=== PATIENT | male | born 1965 | race Caucasian/White ===

== ENCOUNTER → 2017-10-02 | Day surgery (SDC) | payer OTHER ==
[2017-09-16 08:03] VITALS: Ht 177.8 cm; Wt 97.7 kg
[~2017-10-02] VITALS: Ht 177.8 cm; Wt 97.7 kg
[~2017-10-02] MED LIST: ATROPINE SULFATE 0.1 MG/ML 5ML SYR IV PRN; BUPIVACAINE 0.25% 30 ML VIAL ONE; CEFAZOLIN 2000MG IV PUSH 15 ML IV SCH; DEXAMETHASONE SOD INJ 4 MG/ML VIAL ONE; EpINEphrine INJ 1MG/ML AMP 1 MG/ML AMP ONE; FENTANYL CITRATE INJ 50 MCG/1 ML 2 ML VIAL IV PRN; FENTANYL CITRATE INJ 50 MCG/1 ML 2 ML VIAL ONE; GLYCOPYRROLATE INJ 0.2 MG/ML VIAL ONE; KETO10TA PO; KETOROLAC TROMETHAMINE 30 MG/ML VIAL IV. PRN; LABETALOL HCL IV 5 MG/ML 20ML IV PRN; LACTATED RINGER'S 1000ML 1,000 ML IV SCH; LIDOCAINE HCL 2% 2 ML VIAL (20MG/ML) ONE; MIDAZOLAM HCL 1 MG/ML 2ML VIAL ONE; NEOSTIGMINE METHYLSULFATE 5 MG/5 ML SYR ONE; ONDANSETRON INJ 2 MG/ML 2 ML VIAL IV PRN; ONDANSETRON INJ 2 MG/ML 2 ML VIAL ONE; OXYC-57 PO; OXYCODONE/ACETAMINOPHEN 5-325 TAB PO PRN; PROPOFOL IV EMULSION 10 MG/ML 20 ML VIAL IV ONE; ROCURONIUM BROMIDE 10 MG/ML 5 ML VIAL IV ONE; ROPIVACAINE 0.5% 5 MG/ML 30 ML VIAL ONE; SODIUM CHLORIDE 0.9% 1000ML 1,000 ML IV SCH
--- NOTE | 2017-10-02 10:01 | History & Physical Bridge - [place] ---
H&P Re-Evaluation Bridge Note: I have examined the patient, reviewed the History & Physical and in the interval since the performance of the History & Physical I have noted the following changes of clinical significance: No changes noted
--- NOTE | 2017-10-02 12:55 | [facility] Post Operative Brief Note ---
Immediate Operative Summary Operative Date Oct 02, 2017. Pre-Operative Diagnosis Left Shoulder Rotator Cuff Tear Post-Operative Diagnosis Same Procedure(s) Performed Left Shoulder Arthroscopy, Large Rotator Cuff Repair, Extensive Debridement, Biceps Tenodesis Surgeon Dr. Ireland Freight Adjuster Surgeon(s) LORENA Dove Estimated Blood Loss 5 mL Findings Consistent with Post-Op Diagnosis Specimens None Drains None Anesthesia Type General Regional Disposition Disposition: Recovery Room / PACU
--- NOTE | 2017-10-02 13:19 | Discharge Instructions-SurgCtr ---
Discharge Instructions Date of Service Oct 02, 2017. Visit Reason for Visit: Left Shoulder Full Thickness Rotator Cuff Tear Discharge Discharge Diagnosis / Problem: SAME ABOVE Discharge Goals Goal(s): Decrease discomfort, Improve function Activity Recommendations Activity Limitations: as noted below Lifting Limitations: until after follow-up appointment Exercise/Sports Limitations: until after follow-up appointment Shower/Bathe: tomorrow Anesthesia . Post Anesthesia Instructions: If you have had General Anesthesia or IV Sedation: * Do not drive today. * Resume driving when surgeon permits. * Do not make important decisions or sign legal documents today. * Call surgeon for: 1. Temperature elevations greater than 101 degrees F. 2. Uncontrollable pain. 3. Excessive bleeding. 4. Persistent nausea and vomiting. 5. Medication intolerance (nausea, vomiting or rash). * For nausea and vomiting use only clear liquids such as: tea, soda, bouillon until nausea subsides, then gradually increase diet as tolerated. * If you have any concerns or questions, call your surgeon's office. If physician is unavailable and it is an emergency, call 911 or go to the nearest emergency room. . Instructions / Follow-Up Instructions / Follow-Up MEDICATIONS: * Resume previous medications unless instructed otherwise by your surgeon. * Always take pain medication on a full stomach or with food to avoid upset stomach. * Do not drink alcohol or drive while taking narcotics. * Ibuprofen or Tylenol may be taken if narcotic not needed. SPECIAL CARE INSTRUCTIONS: __ None _X_ Keep extremity elevated and iced x 48 hours; apply ice 20-30 minutes 8-10 times/day. May remove at night. __ Sling __24 hrs/day __ Remove at night _X_ Shoulder Immobilizer (MAY REMOVE AFTER 48 HOURS ONLY TO SHOWER) _X_ 24 hrs/day __ Remove at night _X_ Dressing __ Maintain until seen in office, may shower with plastic over site _X_ Remove dressings in 24-48 hours and then may shower _X_ Cover incisions with band-aids after showering __ Do not remove steri-strips Call physician if chills or temperature rises above 102 degrees or pain unrelieved by prescribed pain medications at . . Diet Recommendations Home Diet: no limitations Fluid Restriction: None Procedures Procedures Performed: Left Shoulder Arthroscopy, Large Rotator Cuff Repair, Extensive Debridement, Biceps Tenodesis Pending Studies Studies pending at discharge: no Work Instructions Return To Work: after follow-up Lifting Limitations: NO LIFTING WITH LEFT ARM Medical Emergencies . Who to Call and When: Medical Emergencies: If at any time you feel your situation is an emergency, please call 911 immediately. . Non-Emergent Contact Non-Emergency issues call your: Primary Care Provider Call Non-Emergent contact if: you have a fever, temperature is above 101.5 . . "Provider Documentation" section prepared by Facundo Zamudio. .
[2017-10-02 15:00] VITALS: BP 149/89; PULSE 43; TEMP 36.7; O2SAT 96
--- NOTE | 2017-10-02 15:00 | Anesthesia Progress Nt - [facility] ---
Anesthesia Post Op Note Date & Time Oct 02, 2017 at 14:59 Vital Signs Pain Intensity: 0 Vital Signs Past 12 Hours Date Time Temp Pulse Resp B/P (MAP) Pulse Ox O2 Delivery O2 Flow Rate FiO2 10/02/17 14:04 36.5 48 14 141/89 (106) 97 Room Air 10/02/17 13:55 36.1 50 16 120/88 97 Room Air 10/02/17 13:51 135/82 10/02/17 13:49 51 17 10/02/17 13:49 51 17 97 10/02/17 13:47 127/70 10/02/17 13:44 47 3 10/02/17 13:44 47 3 100 10/02/17 13:41 116/77 10/02/17 13:39 49 10 100 10/02/17 13:39 49 10 10/02/17 13:38 48 10 100 10/02/17 13:38 49 10 10/02/17 13:36 120/85 10/02/17 13:33 55 18 100 10/02/17 13:33 49 18 10/02/17 13:31 125/85 10/02/17 13:28 53 24 100 10/02/17 13:28 52 24 10/02/17 13:26 115/90 10/02/17 13:23 55 20 10/02/17 13:23 56 20 100 10/02/17 13:21 121/77 10/02/17 13:19 36.1 58 16 116/77 99 Mask 6 10/02/17 13:18 123/88 10/02/17 11:11 129/85 10/02/17 11:07 58 20 98 10/02/17 11:07 58 10/02/17 11:06 61 19 127/85 98 10/02/17 11:06 60 10/02/17 11:03 161/70 10/02/17 09:08 36.5 53 16 122/89 (100) 97 Room Air Notes Mental Status: alert / awake / arousable, participated in evaluation Pt Amnestic to Procedure: Yes Nausea / Vomiting: adequately controlled Pain: adequately controlled Airway Patency, RR, SpO2: stable & adequate BP & HR: stable & adequate Hydration State: stable & adequate Anesthetic Complications: no major complications apparent
--- NOTE | 2017-10-02 17:28 | OPERATIVE REPORT ---
DATE OF OPERATION: 10/02/2017 PREOPERATIVE DIAGNOSIS: Large left rotator cuff tear. POSTOPERATIVE DIAGNOSIS: Same. PROCEDURE: Left shoulder diagnostic arthroscopy with extensive debridement, large chronic retracted rotator cuff repair and arthroscopic biceps tenodesis. SURGEON: Dr. Sixto Ireland. RIVET FLUNKY: Samuel Zamudio PA-C, whose assistance was necessary for positioning the arm and helping with instrumentation. ANESTHESIA: General with left interscalene nerve block. COMPLICATIONS: None. CONDITION: Stable to PACU. 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 He has been having several years of shoulder pain, but then fell hard about 3 months ago. He was having difficulty lifting his arm. MRI and clinical examination showed a large retracted rotator cuff tear. After failing conservative treatment, he elected to undergo repair. DESCRIPTION OF PROCEDURE: On 10/02/2017, he arrived at [facility] for the above procedure. He was seen in the preoperative holding area and the operative extremity was identified and signed. He was given a preoperative antibiotic and a left interscalene nerve block. He was taken back to the operating room, laid on the table in supine position and put under general anesthesia. He was then put into the beachchair position. The left shoulder was prepped and draped in sterile fashion. Time-out was done and the patient's operative extremity was properly identified. A scope was introduced into the posterior portal. Diagnostic arthroscopy showed no cartilage damage to the humeral head or the glenoid. The biceps tendon was very frayed. Subscapularis was intact. There was a tear of the entire supraspinatus and infraspinatus. It was retracted towards the level of the glenoid. An anterior portal was made. A shaver was used to do a limited debridement of the intraarticular structures. The biceps tendon was arthroscopically tenotomized for later tenodesis. A scope was then put into the subacromial space. Three lateral portals were made and Griselda cannulas were placed in each of 3 lateral portals. Significant time was spent doing extensive debridement around the rotator cuff to help free it up. I was able to get good coverage over 50% of the footprint. The rotator cuff tissue felt fairly robust. It was obviously a chronic tear, but it was amendable to repair. The greater tuberosity was then prepared with a ring curette and a microfracture. The rotator cuff was then fixed with an Arthrex suspension bridge configuration using BioComposite SwiveLock suture anchors and FiberTapes. I was able to get a nice repair. The long head of the biceps tendon was tagged with a FiberLink and incorporated into a SwiveLock to complete an arthroscopic biceps tenodesis. Multiple pictures were taken. The scope was placed back into the glenohumeral joint and the articular margin of the rotator cuff had been restored. Pictures were taken. Arthroscopic instruments were removed from the shoulder. Portal sites were closed with 3-0 nylon. He was then placed in a soft dressing and an abduction arm sling. He was then extubated, transferred to a litter and taken to the postanesthesia care unit in stable condition. He tolerated the procedure well. I attest to the content of the Intraoperative Record and any orders documented therein. Any exception s are noted below.
== END | disposition home or self-care (01) ==
LOC: X.SURG 08:44
PROVIDERS: ATTEND Orthopaedic Surgery
DX: M75.102 Unspecified rotator cuff tear or rupture of left shoulder, not specified as traumatic (principal)